=== PATIENT | male | born 1945 | race Caucasian/White ===

== ENCOUNTER 2016-12-22 09:28 | Outpatient (CLI) | payer MEDICARE ==
[~2016-12-22] VITALS: Ht 165.1 cm; Wt 70.5 kg
[~2016-12-22 09:28] MED LIST: ALLERGY INJ; ASPIRIN EC81 MG PO; CARDIZEM CD120 MG PO; CARDIZEM120 MG PO; CARDIZEM60 MG PO; CARDURA2 MG PO; CARDURA4 MG PO; CLARITIN 10 MG10 MG PO; COREG6.25 MG PO; COUMADIN5 MG PO; COUMADIN7.5 MG PO; EFFEXOR XR150 MG PO; EFFEXOR75 MG; EFFEXOR75 MG PO; FERROUS SULFAT325 MG PO; K-TAB10 MEQ PO; LASIX20 MG PO; MIRALAX17 GM PO; MOBIC7.5 MG PO; NORCO 5/325 TAB1 TA1 PO; PERCOCET 10/3251 TA1 PO; PROTONIX20 MG PO; PROTONIX40 MG PO; SINGULAIR10 MG PO; SYNTHROID50 MCG PO; THORAZINE25 MG PO; TOPROL XL25 MG PO
[2016-12-22] MEDS ORDERED: COUMADIN7.5 MG PO (10:35)
[2016-12-22] MEDS ORDERED: COUMADIN5 MG PO (10:35)
[2016-12-22 10:39] VITALS: BP 114/60; Ht 165.1 cm; Wt 70.5 kg
== END 2016-12-22 12:30 | disposition home or self-care (01) ==
LOC: D.OPS 09:28
DX: I38 Endocarditis, valve unspecified (principal)

== ENCOUNTER 2017-12-22 08:31 | Outpatient (CLI) | payer MEDICARE ==
[~2017-12-22] VITALS: Ht 165.1 cm; Wt 65.9 kg
[2017-12-22 09:32] VITALS: BP 118/6; Ht 165.1 cm; Wt 65.9 kg
== END 2017-12-22 11:38 | disposition home or self-care (01) ==
LOC: D.OPS 08:31
DX: Z95.2 Presence of prosthetic heart valve (principal)

== ENCOUNTER → 2018-07-12 12:34 | Outpatient (CLI) | payer MEDICARE ==
[2017-12-22 09:32] VITALS: BMI 24.1
[~2018-07-12 12:34] MED LIST changes: +ARTHROTEC 501 TAB.EC PO; +GABAPENTIN100 MG PO
[2018-07-12 12:46] LABS: BASOPHILS 0.2 % (0-2); EOSINOPHILS 3.1 % (0-7); HEMATOCRIT 44.4 % (42.0-54.0); HEMOGLOBIN 14.4 g/dL (13.5-17.5); IMMATURE GRANULOCYTES 0.2 % (0-5); LYMPHOCYTES 18.6 % (15-50); MCH 32.8 pg (26.0-34.0); MCHC 32.4 g/dL (31.0-37.0); MCV 101.1 fL (80.0-100.0); MEAN PLATELET VOLUME 11.2 fL (7.4-10.4); MONOCYTES 7.7 % (2-11); NEUTROPHILS 70.2 % (40-80); RBC 4.39 10x6/uL (4.20-6.10); RDW 13.8 % (11.5-14.5); WBC 5.4 10x3/uL (4.8-10.8)
[2018-07-12 12:48] LABS: PLATELET COUNT 217 10x3/uL (130-400)
[2018-07-12 13:04] LABS: CALC OSMOLALITY 280 mosm/kg (275-300); CALCIUM 8.6 mg/dL (8.5-10.1); CARBON DIOXIDE 29.3 mmol/L (21.0-32.0); CHLORIDE - SERUM 104 mmol/L (98-107); POTASSIUM - SERUM 5.2 mmol/L (3.5-5.1); SODIUM 142 mmol/L (136-145); UREA NITROGEN 15 mg/dL (7-18); eGFR NON AFRICAN AMERICAN 78 mL/min (90-120)
[2018-07-12 13:13] LABS: GLUCOSE 41 mg/dL (74-106)
[2018-07-12 14:36] LABS: ERYTHROCYTE SEDIMENTATION RATE 1 mm/hr (0-20)
== END | disposition home or self-care (01) ==
LOC: D.LABREF 12:34
PROVIDERS: Clinical Nurse Specialist Family Health
DX: M25.552 Pain in left hip (principal)

== ENCOUNTER → 2018-07-22 09:30 | Outpatient (CLI) | payer MEDICARE ==
[2017-12-22 09:32] VITALS: BMI 24.1
== END | disposition home or self-care (01) ==
LOC: D.NM 09:30
DX: M25.552 Pain in left hip (principal)

== ENCOUNTER 2018-08-08 07:08 | Day surgery (SDC) | payer MEDICARE ==
[~2018-08-08] VITALS: Ht 165.1 cm; Wt 70.3 kg
--- NOTE | ~2018-08-08 | OP ---
PATIENT NAME: VALERIE SANTOS MEDICAL RECORD: [id number] :47 LOCATION:D[facility] ADMISSION DATE: SURGEON: JACEY VERDE MD DATE OF OPERATION: 08/08/2018 PREOPERATIVE DIAGNOSIS: Iliopectineal bursa pain in the left hip. POSTOPERATIVE DIAGNOSIS: Iliopectineal bursa pain in the left hip. PROCEDURE: Fluoroscopic-guided iliopectineal bursa injection. SURGEON: Jacey Vedre MD ANESTHESIA: General. INTRAOPERATIVE COMPLICATIONS: None. OPERATIVE SUMMARY IN DETAIL: The patient was brought to the operating room and placed on the operating table in supine position. After adequate TIVA anesthesia was administered, the patient's left hip was prepped and draped in routine sterile fashion. Under sterile conditions, fluoroscopy was brought in and an 18-gauge spinal needle was then gently placed into the area of the iliopectineal bursa. Small amount of Isovue was utilized to be sure that the needle was in the appropriate position. This was followed by injection of 80 mg of Depo-Medrol with approximately 10 cc of 0.25% Marcaine plain. Having completed this, bandage was applied. The patient was awakened and taken back to outpatient in stable condition. All final needle and sponge counts were correct. TRANSINT:[id number] Voice Confirmation ID: [id number] DOCUMENT ID: [id number] JACEY VERDE MD at 0843 CC: [id number] DICTATION DATE: 08/11/18 1403 LEAD INSTALLER: 08/11/[address] [facility] 08/08/18 [place] [id number]
[~2018-08-08 07:08] MED LIST changes: -ARTHROTEC 501 TAB.EC PO; -GABAPENTIN100 MG PO
[2018-08-08 07:24] LABS: HEMATOCRIT 42.8 % (42.0-54.0); HEMOGLOBIN 14.4 g/dL (13.5-17.5); MCH 33.4 pg (26.0-34.0); MCHC 33.6 g/dL (31.0-37.0); MCV 99.3 fL (80.0-100.0); MEAN PLATELET VOLUME 9.9 fL (7.4-10.4); RBC 4.31 10x6/uL (4.20-6.10); WBC 4.6 10x3/uL (4.8-10.8)
[2018-08-08 08:02] LABS: APTT 49.4 SECONDS (22.8-39.4); INR 2.95 (0.85-1.17)
[2018-08-08] MEDS ORDERED: GABAPENTIN100 MG PO (08:15)
[2018-08-08] MEDS ORDERED: ARTHROTEC 501 TAB.EC PO (08:15)
[2018-08-08 08:22] VITALS: Ht 165.1 cm; Wt 70.3 kg
== END 2018-08-08 12:05 | disposition home or self-care (01) ==
LOC: D.OPS 07:08 → D.PAN 12:00 → D.OPS 12:00
PROVIDERS: Anesthesiology
DX: M25.552 Pain in left hip (principal); Z01.812 Encounter for preprocedural laboratory examination

== ENCOUNTER → 2018-10-27 13:28 | Outpatient (CLI) | payer MEDICARE ==
[2018-08-08 08:22] VITALS: BMI 25.8
[~2018-10-27 13:28] MED LIST changes: +ARTHROTEC 501 TAB.EC PO; +GABAPENTIN100 MG PO
== END | disposition home or self-care (01) ==
LOC: D.RAD 13:00
DX: M25.512 Pain in left shoulder (principal)

== ENCOUNTER 2018-12-28 08:32 | Outpatient (CLI) | payer MEDICARE ==
[~2018-12-28] VITALS: Ht 165.1 cm; Wt 70.5 kg
[~2018-12-28 08:32] MED LIST changes: +COREG12.5 MG PO; -COREG6.25 MG PO
[2018-12-28 09:07] VITALS: BP 117/63; Ht 165.1 cm; Wt 70.5 kg
[2019-01-11] MEDS ORDERED: LOVENOX60 MG/0.6 SC (07:55)
[2019-01-11] MEDS ORDERED: PROTONIX40 MG PO (07:56)
[2019-01-11] MEDS ORDERED: LEVOTHYROXINE75 MCG PO (07:56)
== END 2018-12-28 11:30 | disposition home or self-care (01) ==
LOC: D.OPS 08:32
DX: Z95.2 Presence of prosthetic heart valve (principal)

== ENCOUNTER 2019-01-12 07:10 | Day surgery (SDC) | payer MEDICARE ==
[2019-01-11 08:29] LABS: HEMATOCRIT 46.8 % (42.0-54.0); HEMOGLOBIN 16.1 g/dL (13.5-17.5); MCHC 34.4 g/dL (31.0-37.0); MCV 98.9 fL (80.0-100.0); MEAN PLATELET VOLUME 9.9 fL (7.4-10.4); RBC 4.73 10x6/uL (4.20-6.10); RDW 12.9 % (11.5-14.5); WBC 5.2 10x3/uL (4.8-10.8)
[~2019-01-12] VITALS: Ht 165.1 cm; Wt 70.3 kg
[~2019-01-12 07:10] MED LIST changes: +LEVOTHYROXINE75 MCG PO; +LOVENOX60 MG/0.6 SC
[2019-01-12 07:38] VITALS: BP 127/67; Ht 165.1 cm; Wt 70.3 kg
[2019-01-12 09:52] LABS: INR 1.12 (0.85-1.17); PROTIME 13.9 SECONDS (11.6-15.0)
[2019-01-12] MEDS ORDERED: HYDROCODON-ACE1 EA10 PO (10:57)
--- NOTE | 2019-01-12 13:06 | NUR ---
1237 IV DC'D. NO BLEEDING AT SITE. BANDAID APPLIED.
--- NOTE | 2019-01-12 13:09 | OP ---
PATIENT NAME: VALERIE SANTOS MEDICAL RECORD: [id number] :46 LOCATION:[facility] ADMISSION DATE: SURGEON: JACEY VERDE MD DATE OF OPERATION: 01/12/2019 PREOPERATIVE DIAGNOSES: 1. Rotator cuff tear of the left shoulder. 2. Biceps tendinitis of the left shoulder. 3. Impingement syndrome of the left shoulder. 4. AC arthritis of the left shoulder. PROCEDURES: 1. Arthroscopic rotator cuff repair, left shoulder. 2. Arthroscopic biceps tenodesis of the left shoulder. 3. Arthroscopic distal clavicle excision done through separate incision under arthroscopic visualization -- 1 cm. 4. Arthroscopic subacromial decompression with acromioplasty and bursectomy. SURGEON: Jacey Verde MD ANESTHESIA: General. INTRAOPERATIVE COMPLICATIONS: None. SUMMARY OF PATHOLOGIC FINDINGS: Consistent with the preoperative diagnosis, the patient had a rotator cuff tear, full-thickness, just at the area of biceps tendinitis with impingement syndrome consistent with the previous MRI. The patient had a downward sloping acromion with excoriation of the coracoacromial ligament as well as acromioclavicular arthritis. OPERATIVE SUMMARY IN DETAIL: After obtaining the appropriate preoperative orthopedic surgery consent as well as anesthetic consultation, evaluation and clearance, the patient was brought to the operating room and placed on operating table in supine position. After general laryngeal mask airway was administered, the patient was placed in right lateral decubitus position. All pressure points were well padded to include down leg peroneal pad as well as axillary roll. The patient was held firmly to the operating table using the vacuum suction system. Left upper extremity and shoulder were then prepped and draped in routine sterile fashion. The arm was held in the [employer] traction boom in 30 degrees of forward flexion, 30 degrees of abduction with 10 pounds of traction laterally. Arthroscopy was established in the glenohumeral joint for the posterior portal. Anterior portal was established in the anterior safe interval. Diagnostic arthroscopy did reveal the above findings. An accessory lateral portal was created through which a transarthroscopic rotator cuff tear portal was created to decorticate and repair the greater tuberosity for reapproximation of the rotator cuff. Attention was turned to the subacromial space. While in subacromial space, a 3.5 full-radius resector along with [place] tissue ablation system was utilized to denude the undersurface of the acromion of all soft tissue elements and release the coracoacromial ligament. A 5-0 barrel bur was used to perform acromioplasty at the level of acromioclavicular joint. Lastly, the AC joint was taken down 1 cm using the 5-0 barrel isabela under direct arthroscopic visualization through a separate portal. At this point, the biceps tendon was identified and it was tagged with a FiberWire. It was then excised from the bicipital labral junction and tenotomized in the bicipital groove approximately jail down the bicipital groove using a #8 biceps tenodesis OPERATIVE REPORT [id number] DANIELLE,VALERIE G screw from [employer]. The rotator cuff repair was achieved with an inverted FiberWire that was then anchored laterally with a 5.5 SwiveLock from [employer]. Having completed this, arthroscopy portals were closed in routine interrupted fashion using 4-0 Prolene. Sterile dressings were applied. The patient was awakened and taken to recovery room in stable condition. All final needle and sponge counts were correct. TRANSINT:[id number] Voice Confirmation ID: [id number] DOCUMENT ID: [id number] JACEY VERDE MD at 1309 CC: [id number] DICTATION DATE: 01/12/19 1104 CANNERY WORKER: 01/12/19 1120 [facility] 01/12/19 [facility] [address] [place] [address]
== END 2019-01-12 12:59 | disposition home or self-care (01) ==
LOC: D.OPS 07:10 → D.PAN 11:15 → D.OPS 11:15
PROVIDERS: Anesthesiology; ATTEND Orthopaedic Surgery
DX: M75.122 Complete rotator cuff tear or rupture of left shoulder, not specified as traumatic (principal); M75.22 Bicipital tendinitis, left shoulder; M75.42 Impingement syndrome of left shoulder; M13.812 Other specified arthritis, left shoulder; Z01.812 Encounter for preprocedural laboratory examination

== ENCOUNTER → 2019-02-03 11:27 | Outpatient (CLI) | payer MEDICARE ==
[2019-01-12 07:38] VITALS: BMI 25.8
[~2019-02-03 11:27] MED LIST changes: +HYDROCODON-ACE1 EA10 PO
== END | disposition home or self-care (01) ==
LOC: D.HCCARDIO 11:27
PROVIDERS: ATTEND Internal Medicine Cardiovascular Disease
DX: K63.5 Polyp of colon (principal)

== ENCOUNTER → 2019-04-13 08:11 | Outpatient (CLI) | payer MEDICARE | END | disposition home or self-care (01) | LOC: D.RAD 08:11 | DX: M75.22 Bicipital tendinitis, left shoulder (principal) ==

== ENCOUNTER 2019-05-29 07:18 | Day surgery (SDC) | payer MEDICARE ==
[2019-05-24 09:32] LABS: HEMOGLOBIN 16.8 g/dL (13.5-17.5); MCH 34.5 pg (26.0-34.0); MCHC 34.3 g/dL (31.0-37.0); MCV 100.6 fL (80.0-100.0); MEAN PLATELET VOLUME 10.4 fL (7.4-10.4); RBC 4.87 10x6/uL (4.20-6.10); RDW 12.7 % (11.5-14.5); WBC 4.7 10x3/uL (4.8-10.8)
[2019-05-24 09:43] LABS: APTT 62.2 SECONDS (22.8-39.4); PROTIME 46.3 SECONDS (11.6-15.0)
[2019-05-24 10:04] LABS: INR 5.11 (0.85-1.17)
[~2019-05-29] VITALS: Ht 165.1 cm; Wt 70.3 kg
[~2019-05-29 07:18] MED LIST changes: +CYANOCOBAL1000 MCG/4 IM; +RANITIDINE HCL150 M1 PO; +SOMA350 MG PO; +TESTOSTERONE CYP 200 IM
[2019-05-29 08:10] LABS: APTT 34.6 SECONDS (22.8-39.4); INR 1.11 (0.85-1.17); PROTIME 13.7 SECONDS (11.6-15.0)
[2019-05-29 08:22] VITALS: BP 132/75; Ht 165.1 cm; Wt 70.3 kg
[2019-05-29] MEDS ORDERED: PERCOCET 10-321 EAC1 PO (11:10)
--- NOTE | 2019-05-29 13:25 | NUR ---
IV REMOVED PT VOIDED
--- NOTE | 2019-06-01 11:53 | OP ---
PATIENT NAME: VALERIE MCCRARY MEDICAL RECORD: [id number] :47 LOCATION:[facility] ADMISSION DATE: SURGEON: JACEY VERDE MD DATE OF OPERATION: 05/29/2019 PREOPERATIVE DIAGNOSIS: Recurrent rotator cuff tear. POSTOPERATIVE DIAGNOSES: 1. Recurrent rotator cuff tear. 2. Biceps tendinitis and tearing. PROCEDURE: 1. Open rotator cuff repair of the left shoulder. 2. Open biceps tenodesis of the left shoulder. 3. Diagnostic arthroscopy of the left shoulder. SURGEON: Jacey Verde MD ADMISSIONS COORDINATOR: Trace Mitchell INTRAOPERATIVE COMPLICATIONS: None. SUMMARY OF PATHOLOGIC FINDINGS: Unfortunately, the patient did have a recurrent rotator cuff tear just around the area of prior rotator cuff repair. At this time; however, he had at least 80% of the biceps tendon torn. Fortunately, the bicipital labral complex was intact. INDICATIONS: Mr. Mccrary had had a prior rotator cuff repair and was doing quite well until his tractor got stuck in the mud in the ditch. He tried to pull it out using his hands and reinjured his rotator cuff at approximately week 10. Repeat MRI did show the above findings. However, the biceps tendon did appear to be intact at that time. The biceps tendon findings were new at the time of surgery. OPERATIVE SUMMARY IN DETAIL: After obtaining the appropriate preoperative orthopedic surgery consent as well as anesthetic consultation, evaluation and clearance, the patient was brought to the operating room and placed on the operating table in supine position. After adequate general laryngeal mask airway was administered, the patient was placed in a right lateral decubitus position. All pressure points were well padded to include the down leg peroneal pad as well as axillary roll. The patient was held firmly to the operating table using the vacuum pack suction system. The left upper extremity and shoulder were then prepped and draped in routine sterile fashion. At this time, the appropriate preoperative timeout was taken with the appropriate patient identifiers and agreed upon by all. Arthroscopy was established in the glenohumeral joint from the posterior portal. Anterior portal was established in the anterior safe interval. Diagnostic arthroscopy did reveal the patient to have the recurrent rotator cuff tear as noted above as well as biceps tendon tearing as noted above. At this point, the decision was made to proceed with an open rotator cuff repair given that this is a revision scenario. A small arthrotomy was made through the superficial deep deltoid fibers for direct visualization of the rotator cuff tear as well as the biceps tendon. Biceps tendon was then grasped and the fiber loop stitch was utilized to tie off the proximal aspect. A guide pin and hole were created for a 7-mm tenodesis screw. The tenodesis screw was seated nicely with the tendon on the end for excellent OPERATIVE REPORT [id number] VALERIE MCCRARY tenodesis. Having completed this, a double row fixation of the rotator cuff tear was employed using the [employer] double row system. This resulted in an excellent reapproximation of the rotator cuff back the excoriated greater tuberosity. Having completed this, wound was copiously irrigated and closed by Trace Mitchell using #1 Vicryl, 2-0 Vicryl as well as 4-0 Prolene. Sterile dressings were applied. The patient was awakened and taken to the recovery room in stable condition. All final needle and sponge counts were correct. TRANSINT:[id number] Voice Confirmation ID: [id number] DOCUMENT ID: [id number] MEHREEN REYNOSO, JACEY OVIEDO at 1153 CC: [id number] DICTATION DATE: 06/01/19 1121 NAIL MAKING MACHINE SETTER: 06/01/19 1141 [facility] 05/29/19 [facility] [address] [place] [address]
== END 2019-05-29 13:15 | disposition home or self-care (01) ==
LOC: D.OPS 07:18 → D.PAN 10:40 → D.OPS 10:40 → D.PAN 12:30 → D.OPS 12:30
PROVIDERS: Anesthesiology; ATTEND Orthopaedic Surgery
DX: M75.122 Complete rotator cuff tear or rupture of left shoulder, not specified as traumatic (principal); M75.22 Bicipital tendinitis, left shoulder; M25.512 Pain in left shoulder

== ENCOUNTER → 2019-08-28 13:40 | Outpatient (CLI) | payer MEDICARE ==
[2019-05-29 08:22] VITALS: BMI 25.8
[~2019-08-28 13:40] MED LIST changes: +PERCOCET 10-321 EAC1 PO
== END | disposition home or self-care (01) ==
LOC: D.CT 13:40
PROVIDERS: ATTEND Orthopaedic Surgery
DX: M54.12 Radiculopathy, cervical region (principal)

== ENCOUNTER → 2020-01-15 09:57 | Outpatient (CLI) | payer MEDICARE ==
[2019-12-27 08:42] VITALS: BMI 25.0
== END | disposition home or self-care (01) ==
LOC: D.NM 09:45
PROVIDERS: ATTEND Surgery
DX: M25.552 Pain in left hip (principal)

== ENCOUNTER → 2020-01-18 10:55 | Outpatient (CLI) | payer MEDICARE ==
[2019-12-27 08:42] VITALS: BMI 25.0
== END | disposition home or self-care (01) ==
LOC: D.HCCARDIO 10:55
PROVIDERS: ATTEND Internal Medicine Cardiovascular Disease
DX: R06.02 Shortness of breath (principal)

== ENCOUNTER 2020-02-27 07:11 | Outpatient (CLI) | payer MEDICARE ==
[~2020-02-27] VITALS: Ht 165.1 cm; Wt 68.2 kg
--- NOTE | ~2020-02-27 | HEMODYNAMI ---
PATIENT:VALERIE SANTOS MEDICAL RECORD: [id number] : 47 LOCATION:D.CAT ADMISSION DATE: 02/27/20 Generatedon:02/27/202010:46 Patient name: VALERIE SANTOS Patient #: [id number] : 1945 Date of study: 02/27/2020 Page: Of Hemodynamic Procedure Report Patient Data Patient Demographics Procedure consent was obtained First Name: VALERIE Gender: Male Last Name: DANIELLE : 1945 [facility] Initial: CHUYITA Age: 74 year(s) Patient #: [id number] Race: SSN: [id number] Additional ID: [id number] Contact details [address]: [address] [place] [address] State: [place] City: [place] Zip code: [address] Past Medical History Performed procedures and imaging results Date Procedure Procedure Results Comments 01/18/2020 Stress testing Positive->Intermediate with SPECT MPI risk Allergies Allergen Reaction Date Comments Reported Other allergy 02/27/2020 GABAPENTIN, PCN, TETANUS Admission Admission Data Admission Date: 02/27/2020 Admission Time: 7:11 Arrival Date: 02/27/2020 Arrival Time: 0:00 Admit Source: Other Insurance Payor: Medicare HIC #: [id number] Height (in.): 65 BSA: 1.75 (m2) Height (cm.): 165.1 BMI: 25.01 (kg/m2) Weight (lbs.): 150.31 Weight (kg.): 68.18 Lab Results Lab Result Date: 02/27/2020 Lab Result Time: 0:00 Biochemistry Name Units Result Min Max BUN mg/dl 17 --(---*)-- 7 18 Creatinine mg/dl 1.2 --(---*)-- 0.6 1.3 eGFR ml/min 63 *-(----)-- 90 120 NONAFRICAN CBC Name Units Result Min Max Hematocrit % 51.3 --(---*)-- 42 54 Hemoglobin g/dl 16.8 --(---*)-- 13.5 17.5 Procedure Procedure Types Cath Procedure Diagnostic Procedure [facility] w/Coronaries FFR/IVUS FFR Initial FFR Additional Sedation Charges Moderate Sedation up to 30 minutes PCI Procedure Hemochron ACT Test Procedure Description Procedure Date Procedure Date: 02/27/2020 Procedure Start Time: 10:10 Procedure End Time: 10:45 Procedure Staff Name Function Jose Pozo MD Performing Physician Gladis Hernandez RT Monitor Nissa Dickens RT Scrub Eden Campuzano RN Nurse Procedure Data Cath Procedure Fluoroscopy Diagnostic fluoroscopy Total fluoroscopy Time: 7.5 time: 7.5 min min Diagnostic fluoroscopy Total fluoroscopy dose: 620 dose: 620 mGy mGy Contrast Material Contrast Material Type Amount (ml) Isovue 370 102 Entry Location Entry Primary Successful Side Size Upsize Upsize Entry Closure Succes sful Closure Location (Fr) 1 (Fr) 2 (Fr) Remarks Device Remarks Femoral Right 5 Fr Exoseal artery Estimated blood loss: 10 ml Diagnostic catheters Device Type Used For End Catheter Placement MULTIPACK JL 4.0 5Fr Procedure catheter MULTIPACK 3DRC 5Fr Procedure catheter MULTIPACK Pigtail 5 Fr Procedure catheter Procedure Complications No complications Procedure Medications Medication Administration Route Dosage 0.9% NaCl I.V. 100 ml/hr Oxygen etCO2 Nasal cannula 2 l/min Lidocaine 2% added to field 20 Heparin Flush Bag added to field 2 bags (1000units/500ml NS) Versed I.V. 2 mg Fentanyl I.V. 50 mcg Heparin Bolus I.V. 2000 units Hemodynamics Rest BSA: 1.75 (m2) HGB: 16.8 (g/dl) O2 Consumption: Estimated: 201.6 (ml/min) O2 Con sumption indexed: Estimated:115.2 (ml/min/m) Heart Rate: 70 (bpm) Pressure Samples Time Site Value (mmHg) Purpose Heart Use Rate(bpm) 10:21 LV 139/4,15 Snapshot 70 Gradients Valve Time Site Site Mean SEP/DFP Peak To Heart Use 1 2 (mmHg) (sec/min) Peak Rate (mmHg) (bpm) Aortic 10:22 LV AO 64 Snapshots Pre Cath Intra NCS Post Cath Vital Signs Time Heart Resp SPO2 etCO2 NIBP (mmHg) Rhythm Pain Sedation Rate (ipm) (%) (mmHg) Status Level (bpm) 9:57:07 79 19 99 36 151/99(121) NSR 0 (11) 10(A) , No pain 10:01:25 73 13 100 39 142/87(117) NSR 0 (11) 10(A) , No pain 10:05:39 70 14 98 38.6 125/75(100) NSR 0 (11) 10(A) , No pain 10:09:51 69 9 99 37.8 131/75(108) NSR 0 (11) 9(A) , No pain 10:14:07 69 9 98 37.1 129/69(106) NSR 0 (11) 9(A) , No pain 10:18:17 69 9 98 36.3 129/82(108) NSR 0 (11) 9(A) , No pain 10:22:29 69 9 99 33.3 141/73(118) NSR 0 (11) 9(A) , No pain 10:26:45 69 9 100 34 136/78(110) NSR 0 (11) 9(A) , No pain 10:30:57 69 9 100 37.6 136/82(113) NSR 0 (11) 9(A) , No pain 10:35:09 70 10 100 12.1 149/81(118) NSR 0 (11) 9(A) , No pain 10:39:25 69 10 100 37.1 153/86(125) NSR 0 (11) 9(A) , No pain 10:43:43 69 11 100 35.6 143/83(123) NSR 0 (11) 9(A) , No pain Medications Time Medication Route Dose Verified Delivered Reason Notes Effectiveness by by 9:56:12 0.9% NaCl I.V. 100 Jose Eden used for ml/hr Sánchez Campuzano still worker helper 9:56:19 Oxygen etCO2 2 Jose Eden used for Nasal l/min Sánchez Campuzano procedure cannula RN 9:56:24 Lidocaine 2% added 20ml Jose Jose for local to vial Sánchez Pozo MD anesthetic field 9:56:28 Heparin Flush added 2 Jose Jose used for Bag to bags Sánchez Pozo MD procedure (1000units/500ml field NS) 10:07:20 Versed I.V. 2 mg Jose Eden for sedation Sánchez Campuzano RN 10:07:35 Fentanyl I.V. 50 Jose Eden for sedation mcg Sánchez Campuzano RN 10:26:12 Heparin Bolus I.V. 2000 Jose Eden for units Sánchez Campuzano anticoagulation chief of internal medicine Log Time Note 9:40:43 Diagnostic Cath Status : Elective 9:41:26 Informed consent obtained and on chart 9:41:43 Procedure Status Elective Heart Cath (OP). 9:41:53 Gladis Hernandez RT(R) sent for patient. Start room use. 9:41:54 Time tracking: Regular hours (M-F 7:00 - 5:00) 9:42:00 Plan of Care:Hemodynamics will remain stable., Cardiac rhythm will remain stable., Comfort level will be maintained., Respiratory function will remain adequate., Patient/ family verbilizes understanding of procedure., Procedure tolerated without complication., Recovers from procedure without complications.. 9:47:54 H&P Date Dictated: 01/29/2020 Within 30 days and on chart.. 9:47:55 Pre-procedure instructions explained to patient. 9:47:56 Pre-op teaching completed and patient verbalized understanding. 9:48:01 Lab results completed and on chart. 9:48:39 Stress Test: yes; abnormal inferior wall 9:48:41 Alarms reviewed by R. N. 9:48:42 Sharps counted by scrub and verified by R.N. 9:48:47 Admit Source: Other 9:50:30 Insurance Payor : Medicare 9:50:32 Arrival Date: 02/27/2020 12:00:00 AM 9:50:54 Patient Height : 65 inches 9:50:57 Patient Weight : 150.31 lbs 9:51:30 Patient received from Pre/Post Procedure Room to CCL 1 Alert and oriented. Tansferred to table in Supine position. 9:51:31 Warm blankets applied, and tanya hugger turned on for patient comfort. 9:51:32 Correct patient and procedure confirmed by team. 9:51:32 ECG and BP/O2 sat monitors applied to patient. 9:51:59 Patient allergic to Other allergyGABAPENTIN, PCN, TETANUS 9:53:15 Is the patient allergic to Iodine/contrast media? No. 9:53:17 Was the patient premedicated? N/A 9:53:19 Is patient on blood thinner?Yes 9:53:24 ACC The patient was administered the following blood thiners within the last 24 hours: ACCLovenox 9:53:26 Patient diabetic? No. 9:53:29 If diabetic: On Metformin? N/A 9:53:30 ----Pre-sedation anethsthesia assessment.---- 9:53:32 Previous problem with sedation/anesthesia? No ? 9:55:06 Lab Result : BUN 17 mg/dl 9:55:06 Lab Result : Creatinine 1.2 mg/dl 9:55:06 Lab Result : eGFR NONAFRICAN 63 ml/min 9:55:06 Lab Result : Hemoglobin 16.8 g/dl 9:55:06 Lab Result : Hematocrit 51.3 % 9:55:39 Snore? Yes 9:55:43 Sleep apnea? Yes 9:55:44 Deviated septum? No 9:55:46 Opens mouth fully? Yes 9:55:47 Sticks out tongue? Yes 9:55:51 Airway obstruction? No ? 9:55:53 Dentures? No ? 9:55:57 Pre procedure: right dorsailis pedis pulse 2+ Normal; easily identifiable; not easily obliterated 9:56:01 Modified Canelo's test Ulnar > 7 seconds. 9:56:04 Vital chart was started 9:56:04 Patient pain scale 0/10 ?. 9:56:12 0.9% NaCl 100 ml/hr I.V. was administered by Eden Campuzano RN; used for procedure; Verbal order read back and verified. 9:56:12 IV patent on arrival in left antecubital with 0.9% NaCl at [facility]. 9:56:19 Oxygen 2 l/min etCO2 Nasal cannula was administered by Eden Campuzano RN; used for procedure; Verbal order read back and verified. 9:56:24 Lidocaine 2% 20ml vial added to field was administered by Jose Pozo MD; for local anesthetic; Verbal order read back and verified. 9:56:28 Heparin Flush Bag (1000units/500ml NS) 2 bags added to field was administered by Jose Pozo MD; used for procedure; Verbal order read back and verified. 9:56:52 Right groin area was prepped with chlora-prep and draped in sterile fashion 9:57:08 Family unavailable. 9:57:10 Patient NPO since Midnight. 9:57:13 Full Disclosure recording started 9:57:35 Rhythm: sinus rhythm , paced 9:59:56 Use device set Femoral Dx 9:59:58 ACIST Syringe (34020) opened to sterile field. 9:59:59 Bag Decanter (2002S) opened to sterile field. 10:00:00 Medline Cath Pack ([id number]) opened to sterile field. 10:00:01 ACIST Hand Control (19971) opened to sterile field. 10:00:02 ACIST Manifold (81331) opened to sterile field. 10:00:03 DIAGNOSTIC Multipack 5Fr catheter set ([id number]) opened to sterile field. 10:00:04 SHEATH 5FR [place] (QQD874) opened to sterile field. 10:00:05 EMERALD Guide Wire (066-864) opened to sterile field. 10:05:32 --------ALL STOP TIME OUT------ 10:05:33 Final Timeout: patient, procedure, and site verified with staff and physician. All members of the team are in agreement. 10:05:34 Right groin site verified by team. 10:05:38 Fire Safety Assessment: A--An alcohol-based skin anteseptic being used preoperatively., C--Open oxygen or nitrous oxide is being used., D--An ESU, laser, or fiber-optic light is being used. 10:05:41 Physical assessment completed. ASA score P 2 - A patient with mild systemic disease as per Jose Pozo MD. 10:05:44 2) 60-89 Mildly reduced kidney function, and other findings (as for stage 1) point to kidney disease. 10:05:48 Maximum allowable contrast dose (3.7 X eGFR X 0.75)175 ml. 10:05:52 Sedation plan: IV Moderate Sedation Medication:Versed, Fentanyl 10:06:05 Risk of Mortality: 0.1 10:06:08 Risk of blood transfusion: 1.4 10:06:10 Risk of MAGALIS: 1.9 10:07:20 Versed 2 mg I.V. was administered by Eden Justen RN; for sedation; Verbal order read back and verified. 10:07:35 Fentanyl 50 mcg I.V. was administered by Eden Campuzano RN; for sedation; Verbal order read back and verified. 10:09:23 Procedure started. 10:10:50 Local anesthetic to right femoral artery with Lidocaine 2% by Jose Pozo MD.INITIAL ACCESS ONLY 10:14:22 A 5 Fr sheath was inserted into the Right Femoral artery 10:14:44 A MULTIPACK JL 4.0 5Fr catheter was advanced over the wire and used for Procedure. 10:15:20 LCA angiography performed. 10:15:24 Injector settings: Ml/sec: 3, Volume: 6, 10:16:49 Catheter exchanged over wire. 10:18:42 A MULTIPACK 3DRC 5Fr catheter was advanced over the wire and used for Procedure. 10:19:02 RCA angiography performed. 10:19:05 Injector settings: Ml/sec: 3, Volume: 6, 10:19:10 ACCDominant side:Co-Dominant 10:19:36 Catheter exchanged over wire. 10:19:49 A MULTIPACK Pigtail 5 Fr catheter was advanced over the wire and used for Procedure. 10:20:23 LV gram done using KENDRICK 10:21:11 LV hemodynamics recorded. 10:21:23 Injector settings: Ml/sec: 5, Volume: 15, 10:21:51 EF : 40 % 10:23:22 Catheter exchanged over wire. 10:23:25 Proceeding to intervention. 10:23:45 Use device set POZO PCI 10:24:01 INFLATOR Merit BasixCompak ([id number]) opened to sterile field. 10:24:04 TUBING High Pressure Extension Tubing (Pozo) ([id number]) opened to sterile field. 10:24:19 [place] Verrata Plus pressure wire ([id number]) opened to sterile field. 10:25:26 5 Fr JL 4 guide catheter was inserted over the wire 10:26:12 Heparin Bolus 2000 units I.V. was administered by Eden Campuzano RN; for anticoagulation; Verbal order read back and verified. 10:26:48 FFR/IFR wire advanced. 10:27:49 Wire advanced across lesion. 10:29:00 Circ lesion measured at 1.01 with IFR 10:34:21 Wire redirected to LAD. 10:34:25 Wire advanced across lesion. 10:35:53 LAD lesion measured at .91 with IFR 10:36:23 LAD lesion measured at .89 with IFR 10:38:56 Wire removed. 10:38:58 Guide catheter removed. 10:41:23 EXOSEAL 5Fr (EX500) opened to sterile field. 10:41:35 Sheath removed intact; hemostasis achieved with Exoseal to the Right Femoral artery. 10:41:38 Procedure ended.(Physican Out) 10:42:25 Fluoroscopy time 07.50 minutes. 10:42:29 Fluoroscopy dose: 620 mGy 10:42:29 Flurop Dose total: 620 10:42:36 Dose Area Product 30453 mGy/cm. 10:42:40 Contrast amount:Isovue 370 102ml. 10:42:46 Maximum allowable dose exceeded? No. 10:42:47 Sharps counted by scrub and verified by R.N. 10:42:51 Post-op/insertion site Right Femoral artery dressed using a 4 x 4 and Tegaderm. 10:42:57 Post right femoral artery:stable, soft, clean and dry 10:42:59 Post Procedure Pulses reassessed and unchanged 10:43:02 Post procedure: right dorsailis pedis pulse 2+ Normal; easily identifiable; not easily obliterated. 10:43:05 Post-procedure physical assessment completed. ASA score P 2 - A patient with mild systemic disease as per Jose Pozo MD. 10:43:08 Post procedure rhythm: unchanged. 10:43:17 Estimated blood loss: 10 ml 10:43:22 Post procedure instruction explained to patient.Patient verbalizes understanding. 10:43:24 Patient needs reinforcement of post procedure teaching. 10:44:32 Procedure type changed to Cath procedure, Diagnostic procedure, C, [facility] w/Coronaries, FFR/IVUS, FFR Initial, FFR Additional, Sedation Charges, Moderate Sedation up to 30 minutes, PCI procedure, Hemochron ACT Test 10:44:33 ACT drawn and resulted at 252 seconds. (normal therapeutic range 180-240 seconds). 10:44:51 Procedure and supply charges have been captured, reviewed, submitted and are correct. 10:44:57 Procedure Complication : No complications 10:45:01 [facility] Findings: LOU- will discuss options w/ pt 10:45:04 Operative report dictated upon procedure completion. 10:45:05 See physician's report for complete and final results. 10:45:07 Report given to Pre/Post Procedure Room. 10:45:11 Patient transfered to Pre/Post Procedure Room with Stretcher. 10:45:28 Vital chart was stopped 10:45:31 Procedure ended. 10:45:31 Full Disclosure recording stopped 10:45:40 End room use (Document Last) 10:45:51 End room use (Document Last) 10:46:12 End room use (Document Last) Device Usage Item Name Manufacture Quantity Catalog Hospital Part Current Minima l Lot# / Number Charge Number Stock Stock Serial# Code ACIST Acist 1 88098 544362 255062 [id number] 20 Syringe Medical (17035) Systems Inc Bag Microtek 1 2001S 605317 55815 624428 5 Decanter Medical Inc. () Medline Medline 1 [id number] 350401 46337 454930 5 Cath Pack ([id number]) ACIST Hand Acist 1 24599 322930 326417 280829 5 Control Medical (34216) Systems Inc ACIST Acist 1 69827 487077 085525 950885 5 Manifold Medical (69533) Systems Inc DIAGNOSTIC Cardinal 1 [id number] 462875 69640 888228 30 Multipack Health 5Fr catheter set (MT9994) SHEATH 5FR Terumo 1 [id number] 134854 488017 951930 5 [place] (FZH240) EMERALD Cardinal 1 502-455 132742 864457 071019 5 Guide Wire [facility] (502-455) MULTIPACK Cardinal 1 143830 5 JL 4.0 5Fr Health catheter MULTIPACK Cardinal 1 198540 5 3DRC 5Fr Health catheter MULTIPACK Cardinal 1 598365 5 Pigtail 5 Health Fr catheter INFLATOR Merit 1 FJ6027 400597 541824 134857 15 Merit Medical BasixCompak (NF6891) TUBING High Merit 1 [id number] 223092 28708 280479 10 Pressure Medical Extension Tubing (Pozo) (FI1063D) [place] 1 [id number] 024402 [id number] 154361 5 Verrata Plus pressure wire (00891H) EXOSEAL 5Fr Cardinal 1 EX500 025762 284035 865022 10 (EX500) Health Signature Audit [place] Stage Time Signature Unsigned Intra-Procedure 02/27/2020 Gladis Hernandez 10:45:51 AM RT(R) Intra-Procedure 02/27/2020 Eden Campuzano 10:46:12 AM RN Intra-Procedure 02/27/2020 Jose Pozo MD 10:46:30 AM [facility] [address] [place] [address]
[2020-02-27] MEDS ORDERED: WELLBUTRIN SR150 MG PO (07:44)
[2020-02-27] MEDS ORDERED: PEPCID AC20 MG PO (07:44)
[2020-02-27 08:08] VITALS: BP 120/72; Ht 165.1 cm; Wt 68.2 kg
[2020-02-27 08:29] LABS: ANION GAP 11.3 mmol/L (8-16); CALCIUM 8.4 mg/dL (8.5-10.1); CARBON DIOXIDE 26.7 mmol/L (21.0-32.0); CHOL - HDL RATIO 6.1 ratio (2.3-4.9); CREATININE - SERUM 1.2 mg/dL (0.6-1.3); LDL-HDL RATIO 3.9 ratio (1.5-3.5)
[2020-02-27 08:55] LABS: INR 0.97 (0.85-1.17); PROTIME 12.9 SECONDS (11.6-15.0)
[2020-02-27 08:59] LABS: BASOPHILS 0.4 % (0-2); EOSINOPHILS 3.9 % (0-7); HEMATOCRIT 51.3 % (42.0-54.0); HEMOGLOBIN 16.8 g/dL (13.5-17.5); IMMATURE GRANULOCYTES 0.4 % (0-5); LYMPHOCYTES 15.8 % (15-50); MCHC 32.7 g/dL (31.0-37.0); MCV 103.8 fL (80.0-100.0); MEAN PLATELET VOLUME 10.3 fL (7.4-10.4); NEUTROPHILS 64.5 % (40-80); PLATELET COUNT 222 10x3/uL (130-400); RBC 4.94 10x6/uL (4.20-6.10); RDW 12.8 % (11.5-14.5); WBC 4.9 10x3/uL (4.8-10.8)
--- NOTE | 2020-02-27 10:55 | NUR ---
REC'D TO ROOM 6 VIA STRETCHER FROM SOFTWARE PERFORMANCE ENGINEER. MONITORS ESTAB. SEE TYPE CUTTER. PT COOPERATIVE. ALARMS ON AND C/L IN REACH.
--- NOTE | 2020-02-27 11:10 | NUR ---
R GROIN SITE SOFT, C/D/I. NO S/S BLEEDING OR HEMATOMA. PULSES PALP WITH BRISK CAP REFILL. B/P 130/73, HR 70 - PACED. PT DENIES PAIN OR NEEDS. ALARMS ON AND C/L IN REACH.
--- NOTE | 2020-02-27 11:40 | NUR ---
PT RESTING QUIETLY, VSS. R GROIN SITE C/D/I, NO S/S BLEEDING OR HEMATOMA. R LEG WARM WITH PALP PULSES. ALARMS ON AND C/L IN REACH.
--- NOTE | 2020-02-27 11:55 | NUR ---
R GROIN SITE SOFT, C/D/I, NO S/S BLEEDING OR HEMATOMA. VSS. ALARMS ON AND C/L IN REACH.
--- NOTE | 2020-02-27 12:30 | NUR ---
R GROIN SITE SOFT, C/D/I, NO S/S BLEEDING OR HEMATOMA. PT VOIDED 250 ML CLEAR YELLOW URINE IN URINAL. ALARMS ON AND C/L IN REACH.
--- NOTE | 2020-02-27 12:58 | NUR ---
UPDATED PT OVER PHONE, QUESTIONS ANSWERED. PLAN FOR PT D/C AT 1445.
--- NOTE | 2020-02-27 13:45 | NUR ---
R GROIN SITE SOFT, C/D/I. HOB ELEVATED AND SANDWICH TRAY WITH SPRITE PROVIDED. ALARMS ON AND C/L IN REACH.
--- NOTE | 2020-02-27 14:15 | NUR ---
PT ATE ALL OF SANDWICH. DENIES NEEDS. R GROIN SITE SOFT, C/D/I.
--- NOTE | 2020-02-27 14:30 | NUR ---
R GROIN SITE C/D/I, SOFT. PIV D/C'D INTACT, DSG APPLIED. PT ALLOWED UP TO GET DRESSED.
--- NOTE | 2020-02-27 14:38 | NUR ---
ALL DISCHARGE INSTRUCTIONS REVIEWED WITH PT.
--- NOTE | 2020-02-27 14:45 | NUR ---
PT D/C'D VIA WC TO PRIVATE VEHICLE WITH - SHE VERBALIZES UNDERSTANDING OF DISCHARGE INSTRUCTIONS. PT HAS ALL PAPER WORK AND BELONGINGS.
== END 2020-02-27 14:45 | disposition home or self-care (01) ==
LOC: D.CATH 07:11
PROVIDERS: ATTEND Internal Medicine Cardiovascular Disease
DX: I25.119 Atherosclerotic heart disease of native coronary artery with unspecified angina pectoris (principal); I42.9 Cardiomyopathy, unspecified; Z95.0 Presence of cardiac pacemaker; I10 Essential (primary) hypertension; Z95.2 Presence of prosthetic heart valve; R06.09 Other forms of dyspnea; R94.39 Abnormal result of other cardiovascular function study

== ENCOUNTER 2020-03-25 11:06 | Day surgery (SDC) | payer MEDICARE ==
[~2020-03-25] VITALS: Ht 165.1 cm; Wt 68.2 kg
--- NOTE | ~2020-03-25 | OP ---
PATIENT NAME: VALERIE SANTOS MEDICAL RECORD: [id number] :47 LOCATION:[facility]ELIS ADMISSION DATE: SURGEON: CHADWICK MATTHEWS DO DATE OF OPERATION: 03/25/2020 PROCEDURE: EGD with biopsies. INDICATIONS FOR PROCEDURE: Heartburn and dysphagia. SCOPE: Olympus video gastroscope. MEDICATIONS: Propofol 160 mg IV per anesthesia. ESTIMATED BLOOD LOSS: Minimal. COMPLICATIONS: None. FINDINGS AND DESCRIPTION OF PROCEDURE: Informed consent was given. The patient was made comfortable with the above medication. After reaching an adequate level of sedation by slow IV push, the patient was placed on his left side. The endoscope was advanced under direct visualization through the mouth to the second portion of the duodenum with ease. The upper, middle, and lower thirds of the esophagus appeared normal. At the GE junction, there were minor changes consistent with LA class A reflux-induced esophagitis. Cold forceps biopsies were taken from the midesophagus to rule out the presence of eosinophils and from the squamocolumnar junction to rule out the presence of Helms's mucosa. The endoscope was advanced beyond the GE junction into the stomach and retroflexed to the cardia, where a small sliding hiatal hernia was present. There were no associated ulcerations with this hernia. The fundus of the stomach appeared normal. Throughout the body of the stomach as well as the antrum and prepyloric regions, there were changes consistent with chronic mild gastritis. These changes included granularity and erythema. Cold forceps biopsies were taken from the antrum to rule out the presence of H. pylori and to submit for histopathology. The endoscope was advanced beyond the pylorus into the duodenum, which appeared normal to the second portion. The endoscope was then withdrawn from the patient. The patient tolerated the procedure well and there were no complications. IMPRESSION: 1. LA class A reflux-induced esophagitis. 2. Small sliding hiatal hernia. 3. Mild chronic gastritis. PLAN AND RECOMMENDATIONS: 1. Discharge home when recovery parameters are met. 2. Follow up biopsy specimen results. 3. GERD diet and reflux precautions. 4. Follow up in GI clinic in 4-6 weeks. 5. If reflux and heartburn remains uncontrolled on medications, consider changing to PPI therapy short-term and consider a fundoplication. 6. If dysphagia persists, consider esophageal manometry study. TRANSINT:[id number] Voice Confirmation ID: [id number] DOCUMENT ID: [id number] OPERATIVE REPORT [id number] VALERIE SANTOS NATHAN A DO CC: [id number] DICTATION DATE: 03/25/20 1320 CERTIFIED LACTATION COUNSELOR: 03/25/20 1419 [facility] [address] [place] [id number]
[~2020-03-25 11:06] MED LIST changes: +PEPCID AC20 MG PO; +WELLBUTRIN SR150 MG PO
[2020-03-25 11:34] LABS: HEMATOCRIT 53.4 % (42.0-54.0); HEMOGLOBIN 17.9 g/dL (13.5-17.5); LYMPHOCYTES 9.7 % (15-50); MCH 34.4 pg (26.0-34.0); MCHC 33.5 g/dL (31.0-37.0); MCV 102.7 fL (80.0-100.0); MEAN PLATELET VOLUME 9.8 fL (7.4-10.4); NEUTROPHILS 80.3 % (40-80); PLATELET COUNT 203 10x3/uL (130-400); RDW 13.5 % (11.5-14.5); WBC 6.4 10x3/uL (4.8-10.8)
[2020-03-25 11:35] LABS: ANION GAP 9.6 mmol/L (8-16); CALCIUM 9.3 mg/dL (8.5-10.1); CARBON DIOXIDE 30.9 mmol/L (21.0-32.0); CREATININE - SERUM 1.1 mg/dL (0.6-1.3); POTASSIUM - SERUM 4.5 mmol/L (3.5-5.1)
[2020-03-25] MEDS ORDERED: DICLOFENAC SODI50 MG PO (11:53)
[2020-03-25 11:56] VITALS: BP 142/71; Ht 165.1 cm; Wt 68.2 kg
== END 2020-03-25 14:30 | disposition home or self-care (01) ==
LOC: D.OPS 11:06
PROVIDERS: Anesthesiology; ATTEND Internal Medicine Gastroenterology
DX: R12 Heartburn (principal); R13.10 Dysphagia, unspecified; K21.0 Gastro-esophageal reflux disease with esophagitis; K29.70 Gastritis, unspecified, without bleeding; K44.9 Diaphragmatic hernia without obstruction or gangrene; E07.9 Disorder of thyroid, unspecified; Z86.010 Personal history of colon polyps

== ENCOUNTER → 2020-03-27 08:32 | Outpatient (CLI) | payer MEDICARE ==
[2020-03-25 11:56] VITALS: BMI 25.0
[~2020-03-27 08:32] MED LIST changes: +DICLOFENAC SODI50 MG PO
== END | disposition home or self-care (01) ==
LOC: D.HCCECHO 08:32
PROVIDERS: ATTEND Internal Medicine Cardiovascular Disease
DX: I42.1 Obstructive hypertrophic cardiomyopathy (principal)

== ENCOUNTER 2020-04-29 07:49 | Day surgery (SDC) | payer MEDICARE ==
[~2020-04-29] VITALS: Ht 165.1 cm; Wt 68.2 kg
[2020-04-29 08:17] LABS: BASOPHILS 0.4 % (0-2); EOSINOPHILS 1.5 % (0-7); HEMATOCRIT 56.9 % (42.0-54.0); HEMOGLOBIN 18.4 g/dL (13.5-17.5); IMMATURE GRANULOCYTES 0.2 % (0-5); LYMPHOCYTES 16.3 % (15-50); MCHC 32.3 g/dL (31.0-37.0); MCV 105.2 fL (80.0-100.0); MEAN PLATELET VOLUME 10.3 fL (7.4-10.4); MONOCYTES 13.1 % (2-11); NEUTROPHILS 68.5 % (40-80); PLATELET COUNT 228 10x3/uL (130-400); RBC 5.41 10x6/uL (4.20-6.10); RDW 12.8 % (11.5-14.5); WBC 5.3 10x3/uL (4.8-10.8)
[2020-04-29] MEDS ORDERED: ENTRESTO 24 MG1 EACH PO (08:17)
[2020-04-29 08:19] LABS: PROTIME 13.2 SECONDS (11.6-15.0)
[2020-04-29 08:20] LABS: ANION GAP 7.9 mmol/L (8-16); CREATININE - SERUM 1.4 mg/dL (0.6-1.3); POTASSIUM - SERUM 4.9 mmol/L (3.5-5.1)
[2020-04-29 08:29] VITALS: BP 121/63; Ht 165.1 cm; Wt 68.2 kg
--- NOTE | 2020-04-30 07:11 | OP ---
PATIENT NAME: VALERIE SANTOS MEDICAL RECORD: [id number] :47 LOCATION:D.OPS ADMISSION DATE: SURGEON: CHADWICK MATTHEWS DO DATE OF OPERATION: 04/29/2020 PROCEDURE: Colonoscopy with polypectomy. INDICATIONS FOR PROCEDURE: Screening colonoscopy with a personal history of colon polyps. His last procedure was 5 years ago. SCOPE: Olympus video pediatric colonoscope. MEDICATIONS: Propofol 150 mg IV per anesthesia. WITHDRAWAL TIME: 11 minutes. ESTIMATED BLOOD LOSS: Minimal. COMPLICATIONS: None. FINDINGS: Informed consent was given. The patient was made comfortable with the above medication. After reaching an adequate level of sedation by slow IV push, the patient was placed on his left side. A digital rectal examination was performed and was normal. The endoscope was then advanced under direct visualization through the rectum to the cecum and terminal ileum. The endoscope was slowly withdrawn and mucosa was carefully examined. There were 4 polyps visualized on today's examination. They were all benign appearing and sessile and ranged in size from 2-4 mm in diameter. They were all removed using hot forceps. Two of these polyps were located in the ascending colon and 2 were located in the transverse colon. There were a few diverticula visualized in the descending and sigmoid colon. There was no evidence of diverticulitis. Retroflexion was performed in the rectum with visualization of grade I internal hemorrhoids without bleeding. The endoscope was withdrawn from the patient. The patient tolerated the procedure well and there were no complications. IMPRESSION: 1. Four small benign-appearing sessile polyps as described above, removed using hot forceps. 2. Mild diverticulosis of the descending and sigmoid colon. 3. Grade I internal hemorrhoids without bleeding. PLAN AND RECOMMENDATIONS: 1. Discharge home when recovery parameters are met. 2. Follow up biopsy specimen results. 3. High fiber diet. 4. Continue current medications. 5. Recall colonoscopy in 5 years. TRANSINT:[id number] Voice Confirmation ID: [id number] DOCUMENT ID: [id number] OPERATIVE REPORT [id number] VALERIE SANTOS CHADWICK MATTHEWS DO at 0711 CC: [id number] DICTATION DATE: 04/29/20 0924 METAL CONTROL WORKER: 04/29/202008 [facility] 04/29/20 [place] [address]
== END 2020-04-29 10:20 | disposition home or self-care (01) ==
LOC: D.OPS 07:49
PROVIDERS: Anesthesiology; ATTEND Internal Medicine Gastroenterology
DX: Z12.11 Encounter for screening for malignant neoplasm of colon (principal); Z86.010 Personal history of colon polyps; K63.5 Polyp of colon; K64.0 First degree hemorrhoids; K57.30 Diverticulosis of large intestine without perforation or abscess without bleeding; E07.9 Disorder of thyroid, unspecified; R12 Heartburn; R13.10 Dysphagia, unspecified

== ENCOUNTER → 2020-04-30 14:45 | Outpatient (CLI) | payer MEDICARE ==
[2020-04-29 08:29] VITALS: BMI 25.0
[~2020-04-30 14:45] MED LIST changes: +ENTRESTO 24 MG1 EACH PO
[2020-04-30 15:32] LABS: BASOPHILS 0.1 % (0-2); EOSINOPHILS 0.3 % (0-7); HEMATOCRIT 56.2 % (42.0-54.0); HEMOGLOBIN 18.3 g/dL (13.5-17.5); IMMATURE GRANULOCYTES 0.2 % (0-5); LYMPHOCYTES 7.9 % (15-50); MCHC 32.6 g/dL (31.0-37.0); MCV 104.5 fL (80.0-100.0); MEAN PLATELET VOLUME 10.4 fL (7.4-10.4); MONOCYTES 6.9 % (2-11); NEUTROPHILS 84.6 % (40-80); PLATELET COUNT 201 10x3/uL (130-400); RBC 5.38 10x6/uL (4.20-6.10); RDW 12.6 % (11.5-14.5)
== END | disposition home or self-care (01) ==
LOC: D.LAB 14:45
PROVIDERS: ATTEND Internal Medicine Gastroenterology
DX: R10.9 Unspecified abdominal pain (principal); Z98.890 Other specified postprocedural states

== ENCOUNTER → 2020-05-27 10:03 | Outpatient (CLI) | payer MEDICARE ==
[2020-04-29 08:29] VITALS: BMI 25.0
[2020-05-27 10:59] LABS: HEMATOCRIT 53.9 % (42.0-54.0); HEMOGLOBIN 17.8 g/dL (13.5-17.5); LYMPHOCYTES 11.4 % (15-50); MCH 33.3 pg (26.0-34.0); MCV 100.9 fL (80.0-100.0); MEAN PLATELET VOLUME 9.8 fL (7.4-10.4); NEUTROPHILS 80.5 % (40-80); PLATELET COUNT 193 10x3/uL (130-400); RBC 5.34 10x6/uL (4.20-6.10); RDW 12.7 % (11.5-14.5); WBC 6.5 10x3/uL (4.8-10.8)
[2020-05-27 11:15] LABS: INR 2.48 (0.85-1.17); PROTIME 26.5 SECONDS (11.6-15.0)
== END | disposition home or self-care (01) ==
LOC: D.LAB 10:03
PROVIDERS: ATTEND Neurological Surgery
DX: D89.9 Disorder involving the immune mechanism, unspecified (principal); E87.8 Other disorders of electrolyte and fluid balance, not elsewhere classified

== ENCOUNTER → 2020-06-12 08:36 | Outpatient (CLI) | payer MEDICARE ==
[2020-04-29 08:29] VITALS: BMI 25.0
[2020-06-12 09:17] LABS: INR 1.26 (0.85-1.17); PROTIME 15.8 SECONDS (11.6-15.0)
== END | disposition home or self-care (01) ==
LOC: D.LAB 08:36
PROVIDERS: ATTEND Neurological Surgery
DX: D69.9 Hemorrhagic condition, unspecified (principal)

== ENCOUNTER → 2020-06-17 07:18 | Outpatient (CLI) | payer MEDICARE ==
[2020-04-29 08:29] VITALS: BMI 25.0
== END | disposition home or self-care (01) ==
LOC: D.RAD 07:18
PROVIDERS: ATTEND Orthopaedic Surgery
DX: M75.122 Complete rotator cuff tear or rupture of left shoulder, not specified as traumatic (principal)

== ENCOUNTER 2020-07-18 06:00 | Day surgery (SDC) | payer MEDICARE ==
[2020-07-17 08:40] LABS: HEMATOCRIT 51.1 % (42.0-54.0); HEMOGLOBIN 17.2 g/dL (13.5-17.5); MCH 33.6 pg (26.0-34.0); MCHC 33.7 g/dL (31.0-37.0); MCV 99.8 fL (80.0-100.0); MEAN PLATELET VOLUME 10.1 fL (7.4-10.4); RBC 5.12 10x6/uL (4.20-6.10); RDW 12.5 % (11.5-14.5); WBC 6.3 10x3/uL (4.8-10.8)
[~2020-07-18] VITALS: Ht 165.1 cm; Wt 68.0 kg
[~2020-07-18 06:00] MED LIST changes: +FLOMAX0.4 MG PO
[2020-07-18 06:42] VITALS: BP 131/69; Ht 165.1 cm; Wt 68.0 kg
[2020-07-18] MEDS ORDERED: HYDROCODON-ACE1 EA10 PO (09:18)
--- NOTE | 2020-07-18 13:13 | OP ---
PATIENT NAME: VALERIE SANTOS MEDICAL RECORD: [id number] :47 LOCATION:D[facility] ADMISSION DATE: SURGEON: JACEY VERDE MD DATE OF OPERATION: 07/18/2020 PREOPERATIVE DIAGNOSES: 1. Rotator cuff tear of the right shoulder. 2. Impingement syndrome of the right shoulder. POSTOPERATIVE DIAGNOSES: 1. Rotator cuff tear of the right shoulder. 2. Impingement syndrome of the right shoulder. PROCEDURES: 1. Open rotator cuff repair of the right shoulder. 2. Arthroscopic subacromial decompression, acromioplasty and bursectomy - shoulder arthroscopy. SURGEON: Jacey Verde MD ANESTHESIA: General. INTRAOPERATIVE COMPLICATIONS: None. SUMMARY OF PATHOLOGIC FINDINGS: The patient had a very deep [id number] rotator cuff tear juxtaposed to the musculotendinous junction; however, it was all [id number], this required reapproximation and lateral anchorage. The patient did have a type 2 acromion that required acromioplasty. OPERATIVE SUMMARY IN DETAIL: After obtaining the appropriate preoperative orthopedic surgery consent as well as anesthetic consultation, evaluation and clearance, the patient was brought to the operating room and placed on the operating table in the supine position. After adequate general laryngeal mask was administered, the patient was placed in left lateral decubitus position. All pressure points were well padded to include down leg peroneal pad as well as axillary roll. The patient was held firmly to the operating table using the vacuum pack suction system. Right upper extremity and shoulder were then prepped and draped in routine sterile fashion. The arm was held in the [employer] traction ruano at 30 degrees of forward flexion, 30 degrees of abduction, 10 pounds of traction laterally. At this point, the appropriate timeout was taken and agreed upon by all given the patient's unique identifiers. Arthroscopy was established in the glenohumeral joint from the posterior portal, anterior portal was established in the anterior safe interval. Diagnostic arthroscopy showed the patient to indeed have the rotator cuff tearing as described above. Attention was immediately turned to the subacromial space. Accessory lateral portal was created through which surface tissue ablation was utilized to denude the undersurface of the acromion of all soft tissue elements. A 5-0 barrel bur was used to perform acromioplasty at the level of acromioclavicular joint. Next, attention was turned to the rotator cuff itself. The small arthroscopic portal incision was elongated for an anterolateral approach to the large rotator cuff tear. The rotator cuff was then mobilized and serially and sequentially reapproximated with #2 FiberTape and #2 FiberWire. These were then anchored laterally with a 5-0 SwiveLock from [employer] as well as a 4.75 SwiveLock from [employer]. Having completed this, the deltoid was OPERATIVE REPORT [id number] DANIELLEVALERIE BOOGIE reapproximated to the acromion in a [id number]-[id number] style suture for reapproximation of the deltoid over the top. Having completed this, the fascia of the deltoid was closed with #1 Vicryl, this was followed by 2-0 Vicryl and skin paul done by ACACIA Tomlinson. Having completed this, sterile dressings were applied. The patient was awakened and taken to recovery room in stable condition. All final needle and sponge counts were correct. TRANSINT:[id number] Voice Confirmation ID: [id number] DOCUMENT ID: [id number] JACEY VERDE MD at 1313 CC: [id number] DICTATION DATE: 07/18/20920 DIRECTOR OF MARKET INTELLIGENCE: 07/18/20 115[address] [facility] [address] [place] [address]
--- NOTE | 2020-07-18 19:30 | NUR ---
NERVE BLOCK REMAINS COMPLETELY EFFECTIVE WITH PAIN 0/10. IV D/C'D WITH CANNULA INTACT, PRESSURE HELD, AND DRSG PLACED. DISCHARGE INSTRUCTION GIVEN. DISCHARGE INSTABLE CONDITION
== END 2020-07-18 11:45 | disposition home or self-care (01) ==
LOC: D.OPS 06:00 → D.PAN 08:00 → D.OPS 08:00
PROVIDERS: Anesthesiology; ATTEND Orthopaedic Surgery
DX: M75.122 Complete rotator cuff tear or rupture of left shoulder, not specified as traumatic (principal)

== ENCOUNTER → 2020-07-23 10:06 | Outpatient (CLI) | payer MEDICARE ==
[2020-07-18 06:42] VITALS: BMI 25.0
== END | disposition home or self-care (01) ==
LOC: D.CT 10:06
PROVIDERS: ATTEND Family Medicine
DX: G44.321 Chronic post-traumatic headache, intractable (principal)

== ENCOUNTER → 2020-07-28 | Emergency (ER) | payer MEDICARE ==
[~2020-07-28] VITALS: Ht 165.1 cm; Wt 64.5 kg
[~2020-07-28] MED LIST changes: +FLAGYL500 MG PO; +FLORASTOR250 MG PO; +LEVOFLOXACIN500 MG PO; +SYNTHROID112 MCG PO; +ZOFRAN ODT4 MG/UDTAB PO; +[UNRECOGNIZED DRUG - REMARK]
[2020-07-28 10:21] VITALS: Ht 165.1 cm; Wt 64.5 kg
[2020-07-28 10:46] LABS: BASOPHILS 0.2 % (0-2); EOSINOPHILS 1.3 % (0-7); HEMATOCRIT 48.6 % (42.0-54.0); HEMOGLOBIN 16.1 g/dL (13.5-17.5); IMMATURE GRANULOCYTES 0.6 % (0-5); LYMPHOCYTES 13.8 % (15-50); MCH 33.3 pg (26.0-34.0); MCHC 33.1 g/dL (31.0-37.0); MCV 100.4 fL (80.0-100.0); MEAN PLATELET VOLUME 9.7 fL (7.4-10.4); MONOCYTES 12.1 % (2-11); RBC 4.84 10x6/uL (4.20-6.10); RDW 12.9 % (11.5-14.5); WBC 9.1 10x3/uL (4.8-10.8)
[2020-07-28 10:49] LABS: PLATELET COUNT 285 10x3/uL (130-400)
[2020-07-28 10:55] LABS: CALC OSMOLALITY 276 mosm/kg (275-300); CHLORIDE - SERUM 102 mmol/L (98-107); CREATININE - SERUM 1.2 mg/dL (0.6-1.3); GLUCOSE 113 mg/dL (74-106); POTASSIUM - SERUM 4.4 mmol/L (3.5-5.1); SODIUM 137 mmol/L (136-145); UREA NITROGEN 17 mg/dL (7-18); eGFR NON AFRICAN AMERICAN 63 mL/min (90-120)
[2020-07-28 10:59] LABS: APTT 35.7 SECONDS (22.8-39.4); INR 1.43 (0.85-1.17); PROTIME 17.4 SECONDS (11.6-15.0)
[2020-07-28 11:12] LABS: ALKALINE PHOSPHATASE 64 U/L (30-120); ALT (SGPT) 37 U/L (10-68); BILIRUBIN - TOTAL 0.69 mg/dL (0.2-1.3); CKMB 2.4 U/L (0.0-3.6); CREATINE KINASE 91 UL (21-232); MAGNESIUM - SERUM 2.1 mg/dL (1.8-2.4); PROTEIN - SERUM 7.8 g/dL (6.4-8.2); TROPONIN-I < 0.017 ng/mL (0.000-0.060)
[2020-07-28 11:20] VITALS: BP 147/70
[2020-07-28 11:37] LABS: BILIRUBIN NEGATIVE (NEGATIVE); KETONE NEGATIVE (NEGATIVE); NITRITE NEGATIVE (NEGATIVE); UROBILINOGEN NORMAL mg/dL (< 2)
[2020-07-28 11:38] LABS: AMYLASE - SERUM 39 U/L (25-115); LIPASE 71 U/L (73-393)
== END ==
LOC: D.ER 10:13
PROVIDERS: Family Medicine
DX: K52.9 Noninfective gastroenteritis and colitis, unspecified (principal); R53.81 Other malaise; R53.83 Other fatigue; E07.9 Disorder of thyroid, unspecified; K21.9 Gastro-esophageal reflux disease without esophagitis; R11.0 Nausea

== ENCOUNTER 2021-01-10 10:29 | Day surgery (SDC) | payer MEDICARE ==
[2020-11-22 09:54] VITALS: BMI 25.0
[2021-01-10 11:04] LABS: BASOPHILS 0.2 % (0-2); EOSINOPHILS 2.3 % (0-7); HEMATOCRIT 52.2 % (42.0-54.0); HEMOGLOBIN 17.6 g/dL (13.5-17.5); IMMATURE GRANULOCYTES 0.3 % (0-5); LYMPHOCYTES 12.3 % (15-50); MCH 34.1 pg (26.0-34.0); MCHC 33.7 g/dL (31.0-37.0); MCV 101.2 fL (80.0-100.0); MEAN PLATELET VOLUME 10.1 fL (7.4-10.4); MONOCYTES 9.2 % (2-11); NEUTROPHIL ABS# 4.95 10x3/uL (1.78-5.38); NEUTROPHILS 75.7 % (40-80); PLATELET COUNT 191 10x3/uL (130-400); RBC 5.16 10x6/uL (4.20-6.10); RDW 12.6 % (11.5-14.5); WBC 6.5 10x3/uL (4.8-10.8)
--- NOTE | 2021-01-10 14:32 | NUR ---
PT BECAMED DIAPHORETIC AND FELT FAINT AFTER PHLEBOTOMY. KEPT IN OPS UNTIL HE ATE A MEAL. DISCHARGE BP 115/66 AND O=PT WITHOUT ANY C/O
== END 2021-01-10 12:30 | disposition home or self-care (01) ==
LOC: D.OPS 10:29
PROVIDERS: ATTEND Specialist
DX: D75.1 Secondary polycythemia (principal)

== ENCOUNTER → 2021-01-24 08:43 | Outpatient (CLI) | payer MEDICARE ==
[2020-11-22 09:54] VITALS: BMI 25.0
== END | disposition home or self-care (01) ==
LOC: D.HCCECHO 08:43
PROVIDERS: ATTEND Internal Medicine Cardiovascular Disease
DX: R06.00 Dyspnea, unspecified (principal)

== ENCOUNTER 2021-03-13 12:37 | Emergency (ER) | payer MEDICARE ==
[~2021-03-13] VITALS: Ht 165.1 cm; Wt 63.6 kg
[2021-03-13 12:49] VITALS: BP 147/80; Ht 165.1 cm; Wt 63.6 kg
[2021-03-13 13:25] LABS: ANION GAP 10.7 mmol/L (8-16); CALCIUM 9.1 mg/dL (8.5-10.1); CARBON DIOXIDE 30.2 mmol/L (21.0-32.0); CREATININE - SERUM 1.2 mg/dL (0.6-1.3); POTASSIUM - SERUM 3.9 mmol/L (3.5-5.1)
[2021-03-13 13:31] LABS: BASOPHILS 0.3 % (0-2); EOSINOPHILS 0.7 % (0-7); HEMATOCRIT 48.6 % (42.0-54.0); HEMOGLOBIN 15.8 g/dL (13.5-17.5); IMMATURE GRANULOCYTES 0.3 % (0-5); LYMPHOCYTE ABS# 0.78 10x3/uL (1.32-3.57); LYMPHOCYTES 10.2 % (15-50); MCH 32.6 pg (26.0-34.0); MCHC 32.5 g/dL (31.0-37.0); MCV 100.2 fL (80.0-100.0); MEAN PLATELET VOLUME 10.2 fL (7.4-10.4); MONOCYTES 9.1 % (2-11); NEUTROPHIL ABS# 6.06 10x3/uL (1.78-5.38); NEUTROPHILS 79.4 % (40-80); RBC 4.85 10x6/uL (4.20-6.10); WBC 7.6 10x3/uL (4.8-10.8)
[2021-03-13 13:33] LABS: ALBUMIN 3.9 g/dL (3.4-5.0); BILIRUBIN - TOTAL 0.61 mg/dL (0.2-1.3); PROTEIN - SERUM 7.3 g/dL (6.4-8.2); TROPONIN-I 0.023 ng/mL (0.000-0.060)
[2021-03-13 13:46] LABS: PLATELET COUNT 242 10x3/uL (130-400)
[2021-03-13 14:25] LABS: BILIRUBIN NEGATIVE (NEGATIVE); KETONE NEGATIVE (NEGATIVE); NITRITE NEGATIVE (NEGATIVE); UROBILINOGEN NORMAL mg/dL (< 2)
== END 2021-03-13 15:58 | disposition home or self-care (01) ==
LOC: D.ER 12:37
PROVIDERS: Student in an Organized Health Care Education/Training Program
DX: R10.9 Unspecified abdominal pain (principal); Q55.4 Other congenital malformations of vas deferens, epididymis, seminal vesicles and prostate; R11.2 Nausea with vomiting, unspecified; K59.00 Constipation, unspecified